=== PATIENT | female | born 1980 | race Caucasian/White ===

== ENCOUNTER 2019-01-20 21:20 | Emergency (ER) | payer OTHER ==
--- NOTE | 2019-01-20 21:54 | EDPHY ---
H & P Time Seen by Provider: 01/20/19 21:39 HPI/ROS: CHIEF COMPLAINT: Arm pain and swelling HISTORY OF PRESENT ILLNESS: Patient is a 38-year-old female presents emergency department arm swelling and pain. Patient normally works out in a gym with weights. However, 2 days ago she did and atypical exercise which worked her upper extremities. She did this with a hearing dog trainer. She initially felt sore after the workout. She took a day off to recover. Today she went swimming. After swimming she noticed that she had increased biceps pain and swelling at the base every humerus into her elbow. She denies any numbness or tingling. Patient denies any fever but does report chills last evening.. No nausea vomiting. No change in the color of urine. No change in urine frequency. No flank pain. REVIEW OF SYSTEMS: 10 systems were reveiwed and are negative with the exception of the elements mentioned in the history of present illness. Past Medical/Surgical History: Negative Social history: Patient does not smoke Smoking Status: Never smoked Physical Exam: Vitals noted GENERAL: Well-appearing, in no acute distress, alert. HEENT: Eyes normal to inspection. NECK: Normal. RESPIRATORY: Clear to auscultation bilaterally, no rales, rhonchi or wheezing. CVS: Regular rate and rhythm, no rubs, murmurs, or gallops. ABDOMEN: Soft, nontender. BACK: No CVA tenderness. SKIN: Normal color, no rash, warm, dry. No pallor. EXTREMITIES: The patient has mild swelling at the base of her humerus bilaterally. The muscle compartments feel soft on exam. She is able to fully range her elbow and shoulder without significant discomfort. Neurovascular intact distally. NEURO/PSYCH: Alert and oriented, normal mood and affect, normal motor sensory exam. Constitutional: Initial Vital Signs Temperature (C) 36.6 C 01/20/19 21:26 Heart Rate 73 01/20/19 21:26 Respiratory Rate 16 01/20/19 21:26 Blood Pressure 133/88 H 01/20/19 21:26 O2 Sat (%) 99 01/20/19 21:26 O2 Delivery Mode Room Air Allergies/Adverse Reactions: No Known Allergies Allergy (Verified 01/20/19 21:26) Home Medications: Medication Instructions Recorded Calcium 3 tab PO DAILY 12/07/13 Fish Oil 2 cap PO DAILY 12/07/13 Vit27&Calcium/Iron/FA 1 tab PO DAILY 12/07/13 [] Probiotic 1 cap PO DAILY 12/07/13 Medical Decision Making ED Course/Re-evaluation: In the emergency department discussed possible etiologies with the patient. I answered all her questions. I discussed the case with Dr. Williamson who was on-call for Orthopedics. He felt that was very low likelihood the patient compartment syndrome when she could move her arms freely without significant discomfort. The patient has no systemic symptoms such as flank pain, change in the color urine, abdominal pain or nausea. I do not feel she needs to be evaluated laboratory studies for rhabdomyolysis. I discussed all this with the patient. I answered her questions. She was given warnings. She was given follow-up with Dr. Williamson. She will return with worsening symptoms. Differential Diagnosis: My differential includes but is not limited to rhabdomyolysis, compartment syndrome, muscle strain. Departure - Departure Disposition: Home, Routine, Self-Care Clinical Impression: Arm pain Qualifiers: Laterality: bilateral Qualified Code(s): M79.601 - Pain in right arm; M79.602 - Pain in left arm; M79.602 - Pain in left arm Condition: Good Instructions: Arm Pain (ED) Additional Instructions: Apply ice to your arms bilaterally. Attempt to keep your arms elevated. Return with increasing pain, swelling, discoloration, nausea, vomiting, change the color of urine or any other concerns. You been given follow-up information for Dr. Williamson. He has an business performance specialist. Referrals: Chacorta Williamson MD [Medical Doctor] - As per Instructions
[2019-01-20 22:07] VITALS: BP 125/76
== END 2019-01-20 22:05 | disposition home or self-care (01) ==
DX: M79.602 Pain in left arm (principal); M79.601 Pain in right arm